=== PATIENT | male | born 1955 | race Caucasian/White ===

== ENCOUNTER → 2022-06-01 | Outpatient (CLI) | payer MEDICARE ==
[2022-06-01 23:54] LABS: African American GFR (CKD) 43.6 (60.0-200.0); Anion Gap 12.8 mmol/L (10.00-18.00); BUN/Creat Ratio 11.25 Ratio (12.00-20.00); Blood Urea Nitrogen 20.7 mg/dL (9.0-27.0); Calcium 9.8 mg/dL (8.7-10.3); Carbon Dioxide 20.8 mmol/L (20.0-27.5); Non-African American GFR(CKD) 37.6 (60.0-200.0)
[2022-06-02 00:42] LABS: Basophils # (A) 0.04 X 10*3/uL (0.00-0.10); Basophils % (A) 0.4 %; Eosinophils # (A) 0.19 X 10*3/uL (0.04-0.35); Eosinophils % (A) 2.1 %; HCT 41.2 % (39.6-50.0); HGB 13.5 g/dL (13.0-17.0); Immature Grans, Automated 0.5 %; Lymphocytes # (A) 2.77 X 10*3/uL (0.90-5.00); Lymphocytes % (A) 29.9 %; MCH 29.5 pg (27.0-32.0); MCHC 32.8 g/dL (32.0-37.0); Mean Platelet Volume 11.2 fL (9.5-12.2); Monocytes # (A) 0.62 X 10*3/uL (0.20-1.00); Monocytes % (A) 6.7 %; NRBC Per 100 WBC 0 /100 WBCS (0.0-0.0); Neutrophils # (A) 5.58 X 10*3/uL (1.80-7.70); Neutrophils % (A) 60.4 %; Platelet Count 189 X 10*3/uL (140-440); RBC 4.58 X 10*6/uL (4.40-5.60); RDW 12.7 % (11.5-14.5); WBC 9.25 X 10*3/uL (4.50-10.00)
== END | disposition home or self-care (01) ==
LOC: LABPAT 13:18
PROVIDERS: ATTEND Urology
DX: Z01.812 Encounter for preprocedural laboratory examination (principal); N40.0 Benign prostatic hyperplasia without lower urinary tract symptoms; R33.9 Retention of urine, unspecified
CPT/HCPCS: 36415; 80048; 85025; 87086

== ENCOUNTER 2022-06-08 10:27 | Day surgery (SDC) | payer MEDICARE ==
--- NOTE | 2022-06-08 10:20 | P.GSHP ---
History of Present Illness H&P Date: 06/07/22 Chief Complaint: Urinary retention The patient is a 66-year-old white male hospitalized on numerous occasions in 2021. During those hospitalizations, he was found to be in urinary retention with an elevated serum creatinine level. Ultrasound showed no hydronephrosis. The serum creatinine level improved with Jaquez catheter drainage. Cystoscopy has shown bilobar BPH. Urodynamic testing showed normal detrusor function. The PSA level was 4.2. Prostate ultrasound revealed a prostate volume of 59 mL. Biopsies were negative. He has elected to undergo a bipolar transurethral resection of prostate (TURP)and comes for this reason. - Cardiovascular Cardiovascular: Reports high blood pressure - Genitourinary (Male) Genitourinary: Reports as per HPI Past Medical History Past Medical History: Chest Pain / Angina, Diabetes Mellitus, GERD/Reflux, Hearing Disorder / Deafness, Hypertension, Osteoarthritis (OA), Prostate Disorder, Renal Disease Additional Past Medical History / Comment(s): IDDM. DIABETIC NEUROPATHY IN FEET. STAGE III KIDNEY DISEASE ( HAS IMPROVED FROM STAGE 5, PER SPOUSE). LOWER BACK PAIN. History of Any Multi-Drug Resistant Organisms: None Reported Past Surgical History: Uterine Ablation Additional Past Surgical History / Comment(s): LASIK. RIGHT TOE CROSS PIN. EXPLORATORY YEARS AGO ADHESIONS. Past Anesthesia/Blood Transfusion Reactions: No Reported Reaction Past Psychological History: Anxiety Additional Psychological History / Comment(s): USES PRIMATENE MIST WHEN HE GETS ANXIOUS. Smoking Status: Former smoker Past Alcohol Use History: None Reported Additional Past Alcohol Use History / Comment(s): QUIT 45 YEARS AGO. Past Drug Use History: None Reported - Past Family History Mother Family Medical History: No Reported History Medications and Allergies Home Medications Medication Instructions Recorded Confirmed Type Cimetidine [Tagamet] 300 mg PO DAILY PRN 06/02/22 06/02/22 History EPINEPHrine [Primatene Mist] 1 spray INHALATION DAILY PRN 06/02/22 06/02/22 History Gabapentin 600 mg PO TID 06/02/22 06/02/22 History Insulin Aspart [NovoLOG] 6 unit SQ AC-TID 06/02/22 06/02/22 History Insulin Glargine,Hum.rec.anlog 20 unit SQ HS 06/02/22 06/02/22 History [Lantus Solostar Pen] Metoprolol Succinate [Metoprolol 25 mg PO QAM 06/02/22 06/02/22 History Succinate ER] Sodium Bicarbonate 650 mg PO BID 06/02/22 06/02/22 History Tamsulosin [Flomax] 0.4 mg PO QAM 06/02/22 06/02/22 History Allergies Allergy/AdvReac Type Severity Reaction Status Date / Time No Known Allergies Allergy Verified 06/02/22 15:12 Surgical - Exam - General well developed, well nourished, no distress - Respiratory normal respiratory effort - Abdomen Abdomen: soft, non tender, no guarding, no rigid, no rebound - Genitourinary normal penis with no external lesions, testicles non-tender - Rectum Rectum: normal sphincter tone, no masses, other (Prostate moderately enlarged but smooth) - Psychiatric oriented to time, oriented to person, oriented to place, speech is normal, memory intact Assessment and Plan (1) Retention of urine, unspecified Status: Acute Code(s): R33.9 - RETENTION OF URINE, UNSPECIFIED SNOMED Code(s): 477659783 (2) Benign prostatic hyperplasia with lower urinary tract symptoms Status: Acute Code(s): N40.1 - BENIGN PROSTATIC HYPERPLASIA WITH LOWER URINARY TRACT SYMP SNOMED Code(s): 743725249 Plan: Cystoscopy, bipolar transurethral resection of prostate (TURP). The procedure then reviewed in detail with the patient and his . They have been made aware of potential risks, which include anesthesia, bleeding, infection, vesical neck contracture, retrograde ejaculation, erectile dysfunction, urinary incontinence, and persistent urinary retention.
[2022-06-08] MEDS ORDERED: LACTATED RINGERS 1,000 ML IV SCH (10:40)
[2022-06-08] MEDS ORDERED: LIDOCAINE 1% (10MG/ML) FOR IV START INTRADERMA PRN (10:40)
[2022-06-08] MEDS ORDERED: ONDANSETRON 4 MG/2 ML VIAL IVP PRN (10:40)
[2022-06-08] MEDS ORDERED: DEXAMETHASONE SOD PHOSPHATE 4 MG/ML 1 ML VIAL IV ONE (10:40)
[2022-06-08 11:18] LABS: Glucose,Whole Blood 162 mg/dL (70-110)
[2022-06-08] MEDS ORDERED: MIDAZOLAM 2 MG/2 ML VIAL IVP ONE (11:19)
[2022-06-08] MEDS ORDERED: SUCCINYLCHOLINE CHLORIDE 200 MG/10 ML VIAL IV ONE (11:49)
[2022-06-08] MEDS ORDERED: PROPOFOL 10 MG/ML 20 ML VIAL IV ONE (11:49)
[2022-06-08] MEDS ORDERED: PHENYLEPHRINE-0.9% NACL SYG 1,000 MCG/10 ML SYRINGE ONE (11:49)
[2022-06-08] MEDS ORDERED: GLYCOPYRROLATE 0.2 MG/ML 2 ML VIAL ONE (11:49)
[2022-06-08] MEDS ORDERED: FUROSEMIDE 10 MG/ML 2 ML VIAL ONE (11:49)
[2022-06-08] MEDS ORDERED: fentaNYL (PF) 50 MCG/ML 2 ML AMP ONE (11:49)
[2022-06-08] MEDS ORDERED: NEOSTIGMINE 1 MG/ML 10 ML VIAL ONE (11:49)
[2022-06-08] MEDS ORDERED: LIDOCAINE 2% INJ 20 MG/ML (2 ML VIAL) ONE (11:49)
[2022-06-08] MEDS ORDERED: ROCURONIUM 10 MG/ML (5 ML VIAL) IV ONE (11:49)
[2022-06-08] MEDS ORDERED: MIDAZOLAM 2 MG/2 ML VIAL ONE (11:49)
[2022-06-08] MEDS ORDERED: LACTATED RINGERS 1,000 ML IV ONE (13:57)
--- NOTE | 2022-06-08 15:58 | P.OP ---
Date of Procedure: 06/08/22 Preoperative Diagnosis: Urinary retention secondary to BPH Postoperative Diagnosis: Same Procedure(s) Performed: Cystoscopy, bipolar transurethral resection of prostate (TURP) Anesthesia: PIO Surgeon: Parag Salcedo Estimated Blood Loss (ml): 50 IV fluids (ml): 1,500 Pathology: other (Prostate chips) Condition: stable Disposition: PACU Indications for Procedure: The patient is a 66-year-old white male hospitalized on numerous occasions in 2021. During those hospitalizations, he was found to be in urinary retention with an elevated serum creatinine level. Ultrasound showed no hydronephrosis. The serum creatinine level improved with Jaquez catheter drainage. Cystoscopy has shown bilobar BPH. Urodynamic testing showed normal detrusor function. The PSA level was 4.2. Prostate ultrasound revealed a prostate volume of 59 mL. Biopsies were negative. He has elected to undergo a bipolar transurethral resection of prostate (TURP)and comes for this reason. Operative Findings: Bilobar BPH, visually occlusive. Description of Procedure: The patient was taken in the operating room and placed in the dorsolithotomy position. The external genitalia was prepped and draped sterilely. The 25- Turkmen ACMI resectoscope sheath was introduced into the bladder. The bladder was inspected. Both ureteral orifices were of normal anatomic location and configuration, and clear urine effluxed from both. No tumors or foreign bodies were seen. Examination of the prostate revealed complete obstruction with a bilobar configuration. Using the bipolar cutting loop, the lateral lobes were resected down to the surgical capsule. The floor of the prostate was then resected, proximal to the verumontanum. Next, the remaining anterior tissue was resected. The residual apical tissue was then carefully resected, with care taken to avoid injury to the external urinary sphincter. The apical tissue extended distally beyond the verumontanum, so the apical tissue was resected incompletely to minimize the risk of post-prostatectomy incontinence. The resection was carried down to the surgical capsule in all 4 quadrants. The prostatic fossa was then carefully examined, and any areas of bleeding were controlled with electrocautery. Excellent hemostasis was attained. The resectoscope was withdrawn into the bulbous urethra. The external urinary sphincter remained intact. The prostatic fossa was open. The Riskclick evacuator was used to remove all prostate chips from the bladder. These were saved and sent for pathologic examination. The resectoscope was removed, and a 20 Turkmen Jaquez catheter was placed. The return was essentially clear. The patient tolerated the procedure well was taken to the recovery room in stable condition.
[2022-06-08 16:06] VITALS: TEMP 97.6
[2022-06-08] MEDS: HYDROmorphone 0.5 MG/0.5 ML SYRINGE IVP PRN ×4 (16:12→16:48)
[2022-06-08 16:15] LABS: Glucose,Whole Blood 159 mg/dL (70-110)
[2022-06-08 16:24] VITALS: RESP 16
[2022-06-08 17:58] VITALS: BP 134/88; PULSE 78
== END 2022-06-08 18:19 | disposition home or self-care (01) ==
LOC: OR 10:27
PROVIDERS: ATTEND Urology
DX: N40.1 Benign prostatic hyperplasia with lower urinary tract symptoms (principal); R33.8 Other retention of urine; R79.89 Other specified abnormal findings of blood chemistry; E11.22 Type 2 diabetes mellitus with diabetic chronic kidney disease; I12.0 Hypertensive chronic kidney disease with stage 5 chronic kidney disease or end stage renal disease; N18.5 Chronic kidney disease, stage 5; I20.9 Angina pectoris, unspecified; K21.9 Gastro-esophageal reflux disease without esophagitis; M19.90 Unspecified osteoarthritis, unspecified site; H91.90 Unspecified hearing loss, unspecified ear; E11.40 Type 2 diabetes mellitus with diabetic neuropathy, unspecified; Z98.890 Other specified postprocedural states; Z79.51 Long term (current) use of inhaled steroids; F41.9 Anxiety disorder, unspecified; Z87.891 Personal history of nicotine dependence; F10.20 Alcohol dependence, uncomplicated; Z79.4 Long term (current) use of insulin; Z79.899 Other long term (current) drug therapy; Z79.891 Long term (current) use of opiate analgesic; Z79.83 Long term (current) use of bisphosphonates
CPT/HCPCS: 52601; J2250; J0330; J1100; J1940; J2710; J0690; J2405; J3010; J2370; J2704; J1170; J2001; 88305

== ENCOUNTER 2022-06-09 17:15 | Emergency (ER) | payer MEDICARE ==
--- NOTE | 2022-06-09 18:52 | ED ---
Recheck HPI - General Chief Complaint: Recheck/Abnormal Lab/Rx Stated Complaint: Unable to Urinate Time Seen by Provider: 06/09/22 17:25 Source: patient Mode of arrival: ambulatory Limitations: no limitations - History of Present Illness Initial Comments: Patient is a 66-year-old male who presents to the emergency department due to Adams catheter issue. Patient had shaving of his prostate yesterday with Dr. Salcedo due to BPH. Patient states surgery went well. He was sent home with the Adams catheter which he already has been using at home since before his surgery. He reports no output of urine since 12 PM today. Reports suprapubic discomfort. Denies fever, chills, other abdominal pain, nausea, vomiting, testicular pain. - Related Data Home Medications Medication Instructions Recorded Confirmed Cimetidine [Tagamet] 300 mg PO DAILY PRN 06/02/22 06/02/22 EPINEPHrine [Primatene Mist] 1 spray INHALATION DAILY PRN 06/02/22 06/02/22 Gabapentin 600 mg PO TID 06/02/22 06/02/22 Insulin Aspart [NovoLOG] 6 unit SQ AC-TID 06/02/22 06/02/22 Insulin Glargine,Hum.rec.anlog 20 unit SQ HS 06/02/22 06/02/22 [Lantus Solostar Pen] Metoprolol Succinate [Metoprolol 25 mg PO QAM 06/02/22 06/02/22 Succinate ER] Sodium Bicarbonate 650 mg PO BID 06/02/22 06/02/22 Tamsulosin [Flomax] 0.4 mg PO QAM 06/02/22 06/02/22 Cephalexin [Keflex] 500 mg PO TID 06/08/22 06/08/22 Allergies Allergy/AdvReac Type Severity Reaction Status Date / Time No Known Allergies Allergy Verified 06/09/22 17:23 Review of Systems ROS Statement: Those systems with pertinent positive or pertinent negative responses have been documented in the HPI. ROS Other: All systems not noted in ROS Statement are negative. Past Medical History Past Medical History: Diabetes Mellitus, Hypertension History of Any Multi-Drug Resistant Organisms: None Reported Additional Past Surgical History / Comment(s): Prostate surgery 06/08/22 Past Psychological History: No Psychological Hx Reported Smoking Status: Never smoker Past Alcohol Use History: None Reported Past Drug Use History: None Reported General Exam Limitations: no limitations General appearance: alert, in no apparent distress Head exam: Present: atraumatic, normocephalic, normal inspection Respiratory exam: Present: normal lung sounds bilaterally. Absent: respiratory distress, wheezes, rales, rhonchi, stridor Cardiovascular Exam: Present: regular rate, normal rhythm, normal heart sounds. Absent: systolic murmur, diastolic murmur, rubs, gallop, clicks GI/Abdominal exam: Present: soft, tenderness (suprapubic), normal bowel sounds. Absent: distended, guarding, rebound, rigid Neurological exam: Present: alert, oriented X3, CN II-XII intact Psychiatric exam: Present: normal affect, normal mood Skin exam: Present: warm, dry, intact, normal color. Absent: rash Course Vital Signs 06/09/22 17:19 Temperature 97.4 F L Pulse Rate 89 Respiratory 18 Rate Blood Pressure 118/73 O2 Sat by Pulse 96 Oximetry Medical Decision Making - Medical Decision Making Was pt. sent in by a medical professional or institution ([facility] Devlin, SOCIAL SERVICE WORKER, urgent care, hospital, or group home...) When possible be specific @ -[No] Did you speak to anyone other than the patient for history (EMS, parent, family, police, friend...)? What history was obtained from this source @ -[No] Did you review nursing and triage notes (agree or disagree)? Why? @ -[I reviewed and agree with nursing and triage notes] Were old charts reviewed (outside hosp., previous admission, EMS record, old EKG, old radiological studies, urgent care reports/EKG's, group home records)? Report findings @ -[No old charts were reviewed] Differential Diagnosis (chest pain, altered mental status, abdominal pain women, abdominal pain men, vaginal bleeding, weakness, fever, dyspnea, syncope, headache, dizziness, GI bleed, back pain, seizure, CVA, palpatations, mental health)? @ -[not applicable] EKG interpreted by me (3pts min.). @ -[As above] X-rays interpreted by me (1pt min.). @ -[None done] CT interpreted by me (1pt min.). @ -[None done] U/S interpreted by me (1pt. min.). @ -[None done] What testing was considered but not performed or refused? (CT, X-rays, U/S, labs)? Why? @ -[None] What meds were considered but not given or refused? Why? @ -[None] Did you discuss the management of the patient with other professionals (professionals i.e. , PA, SOCIAL SERVICE WORKER, lab, RT, psych nurse, social work msw, electromechanic, teacher, aadc plans staff officer, manager of case management)? Give summary @ -[No] Was smoking cessation discussed for >3mins.? @ -[No] Was critical care preformed (if so, how long)? @ -[No] Were there social determinants of health that impacted care today? How? (Homelessness, low income, unemployed, alcoholism, drug addiction, transp ortation, low edu. Level, literacy, decrease access to med. care, group home, rehab)? @ -[No] Was there de-escalation of care discussed even if they declined (Discuss DNR or withdrawal of care, Hospice)? DNR status @ -[No] What co-morbidities impacted this encounter? (DM, HTN, Smoking, COPD, CAD, Cancer, CVA, ARF, Chemo, Hep., AIDS, mental health diagnosis, sleep apnea, morbid obesity)? @ -[None] Was patient admitted / discharged? Hospital course, mention meds given and route, prescriptions, significant lab abnormalities, going to OR and other pertinent info. @ -This is a 66-year-old male presenting with Adams catheter problem. Flushing catheter was unsuccessful. The Adams catheter was replaced with significant urine output. Patient feeling a ton better, stable for discharge. He'll follow up with Dr. Salcedo Undiagnosed new problem with uncertain prognosis? @ -[No] Drug Therapy requiring intensive monitoring for toxicity (Heparin, Nitro, Insulin, Cardizem)? @ -[No] Were any procedures done? @ -[No] Diagnosis/symptom? @ -adams catheter problem Acute, or Chronic, or Acute on Chronic? @ -acute Uncomplicated (without systemic symptoms) or Complicated (systemic symptoms)? @ -uncomplicated Side effects of treatment? @ -[No] Exacerbation, Progression, or Severe Exacerbation? @ -[No] Poses a threat to life or bodily function? How? (Chest pain, [place], [place], pneumonia, PE, COPD, DKA, ARF, appy, cholecystitis, CVA, Diverticulitis, Homicidal, Suicidal, threat to staff... and all critical care pts) @ -[No] Dr. Zendejas is my attending. Disposition Clinical Impression: Adams catheter problem Disposition: HOME SELF-CARE Condition: Good Instructions (If sedation given, give patient instructions): Adams Catheter Placement and Care (ED), How to Change a Catheter Drainage Bag (DC) Additional Instructions: Follow up with Dr. Salcedo in 1-2 days. Return to the ED if you experience new, concerning, or worsening symptoms. Is patient prescribed a controlled substance at d/c from ED?: No Referrals: Chito Parra MD [Primary Care Provider] - 1-2 days
[2022-06-09 19:10] VITALS: BP 135/78; PULSE 84; RESP 17; TEMP 98
[2022-06-09 19:40] LABS: Appearance,Urine Cloudy (Clear); Bacteria,Urine Occasional /hpf; Bilirubin,Urine Negative (Negative); Blood,Urine Large (Negative); Budding Yeast,Urine Few /hpf; Color,Urine Light Red; Glucose,Urine (UA) 3+ (Negative); Ketones,Urine Negative (Negative); Leukocyte Esterase,Urine Large (Negative); Nitrite,Urine Negative (Negative); Protein,Urine 2+ (Negative); RBC,Urine >182 /hpf (0-5); Specific Gravity,Urine 1.008 (1.001-1.035); Squamous Epithelial Cell,Urine <1 /hpf (0-4); Urobilinogen,Urine <2.0 mg/dL (<2.0); WBC,Urine 79 /hpf (0-5)
== END 2022-06-09 19:17 | disposition home or self-care (01) ==
LOC: EC 17:15
DX: T83.098A Other mechanical complication of other urinary catheter, initial encounter (principal); I10 Essential (primary) hypertension; E11.9 Type 2 diabetes mellitus without complications; Z79.4 Long term (current) use of insulin; Z79.899 Other long term (current) drug therapy
CPT/HCPCS: 51702; 81001; 87086; 99283

== ENCOUNTER 2022-06-10 13:26 | Emergency (ER) | payer MEDICARE ==
[2022-06-10 14:03] VITALS: RESP 18; TEMP 97.9
--- NOTE | 2022-06-10 14:37 | ED ---
Male Urogenital HPI - General Chief complaint: Urogenital Stated complaint: plugged catheter Time Seen by Provider: 06/10/22 14:12 Source: patient Mode of arrival: wheelchair Limitations: no limitations - History of Present Illness Initial comments: Patient is a 66-year-old male presenting with chief complaint of clogged Jaquez catheter. Patient was here last night for the same complaint. He had prostate shaving on 06/[address] Salcedo. Jaquez catheter was placed after procedure and clogged which is what prompted last night visit. Patient states that this morning he has had no output in urine leaking around the Jaquez, he has some pressure due to urine not draining. No fever, chills, nausea, vomiting, dizziness. - Related Data Home Medications Medication Instructions Recorded Confirmed Cimetidine [Tagamet] 300 mg PO DAILY PRN 06/02/22 06/02/22 EPINEPHrine [Primatene Mist] 1 spray INHALATION DAILY PRN 06/02/22 06/02/22 Gabapentin 600 mg PO TID 06/02/22 06/02/22 Insulin Aspart [NovoLOG] 6 unit SQ AC-TID 06/02/22 06/02/22 Insulin Glargine,Hum.rec.anlog 20 unit SQ HS 06/02/22 06/02/22 [Lantus Solostar Pen] Metoprolol Succinate [Metoprolol 25 mg PO QAM 06/02/22 06/02/22 Succinate ER] Sodium Bicarbonate 650 mg PO BID 06/02/22 06/02/22 Tamsulosin [Flomax] 0.4 mg PO QAM 06/02/22 06/02/22 Cephalexin [Keflex] 500 mg PO TID 06/08/22 06/08/22 Allergies Allergy/AdvReac Type Severity Reaction Status Date / Time No Known Allergies Allergy Verified 06/10/22 14:03 Review of Systems ROS Statement: Those systems with pertinent positive or pertinent negative responses have been documented in the HPI. ROS Other: All systems not noted in ROS Statement are negative. Past Medical History Past Medical History: Diabetes Mellitus, Hypertension History of Any Multi-Drug Resistant Organisms: None Reported Additional Past Surgical History / Comment(s): Prostate surgery 06/08/22 Past Psychological History: No Psychological Hx Reported Smoking Status: Never smoker Past Alcohol Use History: None Reported Past Drug Use History: None Reported General Exam Limitations: no limitations General appearance: alert, in no apparent distress Head exam: Present: atraumatic, normocephalic, normal inspection Eye exam: Present: normal appearance Neck exam: Present: normal inspection Neurological exam: Present: alert, oriented X3, CN II-XII intact Psychiatric exam: Present: normal affect, normal mood Skin exam: Present: warm, dry, intact, normal color. Absent: rash Course Vital Signs 06/10/22 06/10/22 13:58 16:16 Temperature 97.9 F 97.9 F Pulse Rate 81 74 Respiratory 18 18 Rate Blood Pressure 163/72 145/70 O2 Sat by Pulse 97 97 Oximetry Medical Decision Making - Medical Decision Making Was pt. sent in by a medical professional or institution (, [facility], FIXTURE BUILDER, urgent care, hospital, or alf...) When possible be specific @ -No Did you speak to anyone other than the patient for history (EMS, parent, family, police, friend...)? What history was obtained from this source @ -No Did you review nursing and triage notes (agree or disagree)? Why? @ -I reviewed and agree with nursing and triage notes Were old charts reviewed (outside hosp., previous admission, EMS record, old EKG, old radiological studies, urgent care reports/EKG's, alf records)? Report findings @ -Reveals visits reviewed Differential Diagnosis (chest pain, altered mental status, abdominal pain women, abdominal pain men, vaginal bleeding, weakness, fever, dyspnea, syncope, headache, dizziness, GI bleed, back pain, seizure, CVA, palpatations, mental health)? @ -not applicable EKG interpreted by me (3pts min.). @ -As above X-rays interpreted by me (1pt min.). @ -None done CT interpreted by me (1pt min.). @ -None done U/S interpreted by me (1pt. min.). @ -None done What testing was considered but not performed or refused? (CT, X-rays, U/S, labs)? Why? @ -None What meds were considered but not given or refused? Why? @ -None Did you discuss the management of the patient with other professionals (professionals i.e. , VINEET, FIXTURE BUILDER, lab, RT, psych nurse, licensed social worker, shrimp packer, teacher, unarmed security officer, case manager specialist)? Give summary @ -Case discussed with urologist forestry conservation worker Dr. Samuel Was smoking cessation discussed for >3mins.? @ -No Was critical care preformed (if so, how long)? @ -No Were there social determinants of health that impacted care today? How? (Homelessness, low income, unemployed, alcoholism, drug addiction, transportation, low edu. Level, literacy, decrease access to med. care, group home, rehab)? @ -No Was there de-escalation of care discussed even if they declined (Discuss DNR or withdrawal of care, Hospice)? DNR status @ -No What co-morbidities impacted this encounter? (DM, HTN, Smoking, COPD, CAD, Cancer, CVA, ARF, Chemo, Hep., AIDS, mental health diagnosis, sleep apnea, morbid obesity)? @ -None Was patient admitted / discharged? Hospital course, mention meds given and route, prescriptions, significant lab abnormalities, going to OR and other pertinent info. @ -Patient is a 66-year-old male presenting with chief complaint of Jaquez catheter malfunction. Patient had surgery performed on 06/[address] Salcedo. He was here last night where they replaced his catheter due to difficulty straining. Patient states that this morning he noticed that his catheter was not draining again. He is having some pressure in the bladder due to urine buildup and urine is leaking around Jaquez. Nurse replaced the Jaquez with a size 20, irrigated and no clots were removed, urine is light pink. Observed to ensure the catheter continued to drain. Patient reports relief of bladder pressure. I spoke with urologist forestry conservation worker Dr. Samuel who states that discharge at this time is suitable and patient can follow-up in the office. Patient is agreeable with this plan. Follow-up with PCP. Report back to ER with any new or worsening symptoms. Discussed return parameters and answered all questions. Patient conveyed verbal understanding and agreed to the plan. I discussed this case in detail with my attending Dr. Sy Undiagnosed new problem with uncertain prognosis? @ -No Drug Therapy requiring intensive monitoring for toxicity (Heparin, Nitro, Insulin, Cardizem)? @ -No Were any procedures done? @ -No Diagnosis/symptom? @ -Jaquez catheter complication Acute, or Chronic, or Acute on Chronic? @ -Acute Uncomplicated (without systemic symptoms) or Complicated (systemic symptoms)? @ -Uncomplicated Side effects of treatment? @ -No Exacerbation, Progression, or Severe Exacerbation? @ -No Poses a threat to life or bodily function? How? (Chest pain, [place], [place], pneumonia, PE, COPD, DKA, ARF, appy, cholecystitis, CVA, Diverticulitis, Homicidal, Suicidal, threat to staff... and all critical care pts) @ -No Disposition Clinical Impression: Jaquez catheter problem Disposition: HOME SELF-CARE Condition: Good Instructions (If sedation given, give patient instructions): Jaquez Catheter Placement and Care (ED) Additional Instructions: Follow up with Dr. Salcedo. Call the office on Sunday to make them aware of this issue. Report back to ER with any new or worsening symptoms. Is patient prescribed a controlled substance at d/c from ED?: No Referrals: Chito Parra MD [Primary Care Provider] - 1-2 days Time of Disposition: 16:02
[2022-06-10 16:16] VITALS: BP 145/70; PULSE 74
== END 2022-06-10 16:17 | disposition home or self-care (01) ==
LOC: EC 13:26
DX: T83.091A Other mechanical complication of indwelling urethral catheter, initial encounter (principal); I10 Essential (primary) hypertension; E11.9 Type 2 diabetes mellitus without complications; Z79.4 Long term (current) use of insulin; Z79.899 Other long term (current) drug therapy
CPT/HCPCS: 51702; 99282

== ENCOUNTER → 2022-10-30 | Outpatient (CLI) | payer MEDICARE | END | disposition home or self-care (01) | LOC: LABWHC1 10:19 | PROVIDERS: ATTEND Urology | DX: R97.20 Elevated prostate specific antigen [PSA] (principal) | CPT/HCPCS: 36415; 84153 ==

== ENCOUNTER → 2023-06-28 | Day surgery (SDC) | payer MEDICARE ==
--- NOTE | 2023-07-04 13:58 | USB ---
Pathology Description: Location: retroareolar. Needle Type: Mammotome Cores: 3 Gauge: 13 The subareolar and 9:00 retroareolar area is identified in the right breast and targeted for biopsy. Suspected gynecomastia. The procedure of ultrasound guided core biopsy was explained to the patient. Benefits, alternatives, and risks were discussed. An informed consent was then obtained. The patient was placed in supine positioning for imaging and for the procedure. The overlying skin was prepped and draped in usual sterile fashion. Lidocaine was used as anesthetic into the skin and subcutaneous tissue up to area of concern in the 9:00 subareolar right breast. Under ultrasound guidance, a 13-gauge vacuum-assisted mammotome Elite biopsy gun was used to obtain 3 core samples. Given the easily identifiable subareolar location and suspicion for gynecomastia, no clip was placed. The patient tolerated the procedure well without any immediate complication. The patient was kept in the radiology department for short stay after the procedure and then discharged home in stable condition. No postprocedure mammogram. IMPRESSION: Successful, uncomplicated ultrasound guided core biopsy of 9:00 subareolar right breast area of concern; suspected benign gynecomastia. Full pathology results to follow. Pathology Results: Result: Benign, Gynecomastia. RIGHT BREAST, POSTERIOR NIPPLE, ULTRASOUND GUIDED CORE BIOPSY: Nodular gynecomastia with fibrosis and usual ductal hyperplasia. Sections examined negative for malignancy. Overall Assessment: Benign Management: Clinical Management of the right breast. Electronically signed and approved by: Deidra Yee M.D. Radiologist
== END ==
LOC: RADUSWWP 12:33
PROVIDERS: ATTEND Family Medicine
DX: N62 Hypertrophy of breast (principal)
CPT/HCPCS: 88305

== ENCOUNTER 2024-04-22 07:40 | Day surgery (SDC) | payer MEDICARE ==
[2024-04-18 10:36] VITALS: BMI 30.1
[~2024-04-22 07:40] MED LIST: LIDOCAINE 1% (10MG/ML) FOR IV START INTRADERMA PRN
[2024-04-22 08:11] VITALS: TEMP 97.4
[2024-04-22] MEDS: IV FLUID CONTINUATION 1,000 ML IV ONE (08:20)
[2024-04-22] MEDS: LACTATED RINGERS 1,000 ML IV SCH (08:20)
[2024-04-22 08:26] LABS: Glucose,Whole Blood 101 mg/dL (70-110)
[2024-04-22] MEDS ORDERED: LIDOCAINE 1% INJ 10MG/ML (20 ML MDV) ONE (08:56)
[2024-04-22] MEDS ORDERED: PROPOFOL 10 MG/ML 20 ML VIAL IV ONE (08:56)
--- NOTE | 2024-04-22 08:58 | P.GSHP ---
History of Present Illness H&P Date: 04/22/24 Chief Complaint: Abnormal Cologuard 68-year-old male for colonoscopy. He has not had a colonoscopy before. Recent Cologuard positive. No bowel complaints. No family history of colon cancer. Past Medical History Past Medical History: Diabetes Mellitus, Hypertension Additional Past Medical History / Comment(s): DM II History of Any Multi-Drug Resistant Organisms: MRSA Date of last positivie culture/infection: May 2022 MDRO Source:: urine Additional Past Surgical History / Comment(s): Prostate surgery 06/08/22, Biopsy right arm 06/2023 Past Anesthesia/Blood Transfusion Reactions: No Reported Reaction Smoking Status: Former smoker - Past Family History Father Family Medical History: Cancer, Diabetes Mellitus Brother(s) Family Medical History: Cancer, Diabetes Mellitus Additional Family Medical History / Comment(s): Prostate CA Mother Family Medical History: Diabetes Mellitus Medications and Allergies Home Medications Medication Instructions Recorded Confirmed Type Gabapentin 600 mg PO TID 06/02/22 04/22/24 History Insulin Glargine,Hum.rec.anlog 20 unit SQ HS 06/02/22 04/22/24 History [Lantus Solostar Pen] Sodium Bicarbonate 650 mg PO BID 06/02/22 04/22/24 History Empagliflozin [Jardiance] 25 mg PO DAILY 06/13/23 04/22/24 History Semaglutide [Ozempic] 1 mg SQ WEEKLY 06/13/23 04/22/24 History lisinopriL [Zestril] 2.5 mg PO DAILY 06/13/23 04/22/24 History Acetaminophen [Tylenol] 325 mg PO DIRECTED PRN 04/18/24 04/22/24 History Metoprolol Succinate (ER) [Toprol 25 mg PO DAILY 04/22/24 04/22/24 History Xl] Allergies Allergy/AdvReac Type Severity Reaction Status Date / Time No Known Allergies Allergy Verified 04/22/24 08:04 Surgical - Exam Vital Signs Temp Pulse Resp BP Pulse Ox 97.4 F L 85 16 152/78 98 04/22/24 08:10 04/22/24 08:10 04/22/24 08:10 04/22/24 08:10 04/22/24 08:10 Physical exam: General: Well-developed, well-nourished HEENT: Normocephalic, sclerae nonicteric Abdomen: Nontender, nondistended Extremities: No edema Neuro: Alert and oriented Assessment and Plan (1) Positive colorectal cancer screening using Cologuard test Narrative/Plan: Will proceed with colonoscopy at this time. Current Visit: Yes Status: Acute Code(s): R19.5 - OTHER FECAL ABNORMALITIES SNOMED Code(s): 687355813
--- NOTE | 2024-04-22 09:10 | P.PCN ---
Date of Procedure: 04/22/24 Procedure(s) Performed: PREOPERATIVE DIAGNOSIS: Positive Cologuard POSTOPERATIVE DIAGNOSIS: Transverse colon polyp, sigmoid colon polyp, mild diverticulosis, scattered AVM PROCEDURE: Colonoscopy with snare polypectomy ANESTHESIA: MAC SURGEON: Carmine Skinner M.D. SPECIMENS: Polyps ENDOSCOPIC PROCEDURE: The patient was placed on the endoscopy table in the left decubitus position. The Olympus colonoscope was inserted into the anus and passed under direct visualization to the base of the cecum. The appendiceal orifice was visualized. From that point the scope was slowly withdrawn inspecting all surfaces carefully. There were no neoplastic inflammatory or polypoid lesions throughout the cecum or ascending colon. In the transverse colon a small polyp was seen and removed using the snare with cautery technique. Descending colon appeared normal. In the sigmoid another small polyp was seen and removed in a similar fashion. There was mild left-sided diverticulosis. There was a few scattered AVMs across the proximal transverse colon. No bleeding seen. Digital rectal examination was normal. The patient was taken to the recovery room in stable condition per anesthesia guidelines. RECOMMENDATIONS: Await biopsy results. Anticipate repeat colonoscopy 5 to 7 years.
[2024-04-22 09:24] LABS: Glucose,Whole Blood 97 mg/dL (70-110)
[2024-04-22 09:39] VITALS: BP 139/79; PULSE 79; RESP 16
== END 2024-04-22 09:50 | disposition home or self-care (01) ==
LOC: ORWHC2ENDO 07:40
PROVIDERS: ATTEND Surgery
DX: R19.5 Other fecal abnormalities (principal); D12.3 Benign neoplasm of transverse colon; D12.5 Benign neoplasm of sigmoid colon; K57.30 Diverticulosis of large intestine without perforation or abscess without bleeding; K55.20 Angiodysplasia of colon without hemorrhage; I25.2 Old myocardial infarction; E11.22 Type 2 diabetes mellitus with diabetic chronic kidney disease; I12.9 Hypertensive chronic kidney disease with stage 1 through stage 4 chronic kidney disease, or unspecified chronic kidney disease; N18.9 Chronic kidney disease, unspecified; Z87.891 Personal history of nicotine dependence; Z79.899 Other long term (current) drug therapy; Z79.4 Long term (current) use of insulin; Z79.85 Long-term (current) use of injectable non-insulin antidiabetic drugs; Z79.84 Long term (current) use of oral hypoglycemic drugs
CPT/HCPCS: 45385; J2003; J2704; 88305